=== PATIENT | female | born 1975 | race African-American/Black ===

== ENCOUNTER 2016-06-27 00:06 | Emergency (ER) | payer MEDICAID ==
[~2016-06-27] VITALS: Ht 170.2 cm; Wt 82.0 kg
[2016-06-27 00:14] VITALS: BP 161/95; PULSE 80; RESP 14; TEMP 98.9; O2SAT 100
--- NOTE | 2016-06-27 01:41 | PD ---
HPI Chief Complaint: OD/ Ingestion Time Seen by Provider: 01:41 Travel History International Travel<30 days: No Contact w/Intl Traveler<30days: No Traveled to known affect area: No History of Present Illness HPI 41 year-old female presents to emergency department for evaluation. She is concerned because she had a cup of diluted bleach that she was cleaning with earlier. She mistakenly thought it was water this evening before bed and went to take a drink of it. She quickly realized it was the bleach water and spit it out. She read the bottle of bleach which advised to go to the emergency department for any exposure. She denies any acute symptoms. States that she does not believe she swallowed any but she may have swallowed a little. Denies a nausea vomiting. No throat pain or burning. She is otherwise well. [facility] Past Medical History Medical History: Denies Significant Hx Diminished Hearing: No Immunizations Current: Yes Tetanus Vaccination: Unknown Influenza Vaccination: No ?: Not LMP: LAST MONTH, IUD Social History Alcohol Use: No Tobacco Use: No Substance Use: No Allergies-Medications (Allergen,Severity, Reaction): Coded Allergies: No Known Allergies (Verified , 06/27/16) Reported Meds & Prescriptions Reported Meds & Active Scripts Active No Active Prescriptions or Reported Medications Review of Systems Except as stated in HPI: all other systems reviewed are Neg Physical Exam Narrative GENERAL: Well-nourished, well-developed female patient, in no acute distress SKIN: Focused skin assessment warm/dry. HEAD: Normocephalic. EYES: No scleral icterus. No injection or drainage. NECK: Supple, trachea midline. No JVD or lymphadenopathy. CARDIOVASCULAR: Regular rate and rhythm without murmurs, gallops, or rubs. RESPIRATORY: Breath sounds equal bilaterally. No accessory muscle use. GASTROINTESTINAL: Abdomen soft, non-tender, nondistended. MUSCULOSKELETAL: No cyanosis, or edema. BACK: Nontender without obvious deformity. No CVA tenderness. Data Data Last Documented VS Vital Signs Date Time Temp Pulse Resp B/P Pulse Ox O2 Delivery O2 Flow Rate FiO2 06/27/16 00:14 98.9 80 14 161/95 100 Room Air Orders MDM Medical Decision Making Medical Screen Exam Complete: Yes Emergency Medical Condition: Yes Medical Record Reviewed: Yes Differential Diagnosis Accidental ingestion versus normal examination versus esophageal chemical irritation Narrative Course 41-year-old female presents to emergency department for evaluation after possible ingestion of bleach. Patient appears without distress. She has no acute symptoms at this time. Poison control was contacted by triage nurse who advises no additional workup except for her to be evaluated by medical provider. I have offered patient reassurance. Encouraged her to follow-up the primary care provider. She agrees to return immediately if any acute worsening symptoms. Diagnosis Primary Impression: Accidental exposure to bleach Referrals: Primary Care Physician Patient Instructions: General Instructions, Normal Exam (ED) Additional Instructions: Follow up with a primary care provider Return immediately with any acute worsening of symptoms Med/Other Pt SpecificInfo: No Change to Meds Scripts No Active Prescriptions or Reported Meds Disposition: 01 DISCHARGE HOME Condition: Stable Cate Fisher June 27, 2016 01:41
== END 2016-06-27 02:28 | disposition home or self-care (01) ==
LOC: NEPK 00:06
DX: T54.91XA Toxic effect of unspecified corrosive substance, accidental (unintentional), initial encounter (principal)
CPT/HCPCS: 99283